=== PATIENT | male | born 1985 | race Caucasian/White ===

== ENCOUNTER 2022-12-23 12:45 | Emergency (ER) | payer OTHER ==
[~2022-12-23] VITALS: Ht 165.1 cm; Wt 65.8 kg
[~2022-12-23 12:45] MED LIST: ANAPROX DS550 MG PO; BENADRYL25 MG PO; BENTYL20 MG PO; CLARITIN-D 10 M1 T21 PO; COMPAZINE10 MG PO; KENALOG0.1% TP; MOTRIN800 MG PO; NKHM; PENICILLIN VK500 MG PO; PREDNICOT20 MG PO; TRAMADOL HCL50 MG PO; TRAZADONE HYDR100 MG PO; TRAZODONE100 MG PO; VISTARIL25 M1 PO; XANAX0.5 MG PO; XANAX1 MG PO; ZANTAC150 MG PO; ZITHROMAX Z PA250 MG PO; ZOFRAN ODT4 MG SL
[2022-12-23] MEDS ORDERED: CLINDAMYCIN HC300 MG PO (13:28)
== END 2022-12-23 13:55 | disposition home or self-care (01) ==
LOC: ED 12:45
DX: L03.012 Cellulitis of left finger (principal)